=== PATIENT | female | born 1935 | race Hispanic/Latino ===

== ENCOUNTER 2017-04-30 10:56 | Emergency (ER) | payer MEDICARE, MEDICAID ==
[2017-04-30 11:18] VITALS: BP 153/83; RESP 19; TEMP 97.6; O2SAT 97; BMI 25.1
[2017-04-30 11:25] VITALS: PULSE 88
--- NOTE | 2017-04-30 11:31 | ED PDOC ---
Arrival/HPI - General Chief Complaint: Lower Extremity Problem/Injury Time Seen by Provider: 04/30/17 11:06 Historian: Patient - History of Present Illness Narrative History of Present Illness (Text): 04/30/17 11:28 The pt is a 81yo female with a past medical history of trigeminal neuralgia, COPD, chronic bronchitis (per pt's prior records), is sent to the Emergency department for evaluation of left lower extremity. Pt reports she favors her left leg while walking, resulting in the swelling. She additionally reports visiting this facility 2-3 months ago during which she had a US Doppler of her lower extremity with no acute findings. Pt currently denies any shortness of breath or difficulty breathing. Pt offers no additional medical complaints. PCP: Dr. 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) Hx Pacemaker: No - Pulmonary Hx Respiratory Disorders: Yes Hx Asthma: No Hx Bronchitis: Yes (chronic) Hx Chronic Obstructive Pulmonary Disease (COPD): Yes Hx Emphysema: Yes Hx Pneumonia: No Hx Respiratory Aspiration: No Hx Respiratory Tract Infection: No Hx Sleep Apnea: No Hx Tuberculosis: No - Neurological Hx Neurological Disorder: No (TRIGEMINAL NEURALGIA) - HEENT Hx HEENT Disorder: No - Renal Hx Renal Disorder: No - Endocrine/Metabolic Hx Endocrine Disorders: No - Hematological/Oncological Hx Blood Disorders: No - Integumentary Hx Dermatological Disorder: No - Musculoskeletal/Rheumatological Hx Musculoskeletal Disorders: Yes (L2 COMPRESSION FX) Hx Falls: Yes Other/Comment: walks with walker, steady - Gastrointestinal Hx Gastrointestinal Disorders: Yes Hx Gall Bladder Disease: Yes (GALLBLADDER CALCULI) - Genitourinary/Gynecological Hx Genitourinary Disorders: Yes (retention) - Psychiatric Hx Psychophysiologic Disorder: Yes (SMOKED <PK/DAY) Hx Emotional Abuse: No Hx Physical Abuse: No Hx Substance Use: No - Past Surgical History Past Surgical History: No Previous - Anesthesia Hx Anesthesia: Yes Hx Anesthesia Reactions: No Hx Malignant Hyperthermia: No - Suicidal Assessment Feels Threatened In Home Enviroment: No Family/Social History - Physician Review Nursing Documentation Reviewed: Yes Family/Social History: No Known Family HX Smoking Status: Former Smoker Hx Alcohol Use: No Hx Substance Use: No Allergies/Home Meds Allergies/Adverse Reactions: Allergies No Known Allergies Allergy (Verified 04/30/17 11:18) Home Medications: Home Meds Medication Instructions Recorded Confirmed Naproxen Sodium [Aleve] 1 tab PO PRN PRN 04/30/17 04/30/17 Review of Systems - Physician Review All systems were reviewed & negative as marked: Yes - Review of Systems Constitutional: Normal Respiratory: absent: SOB, Other (difficulty breathing) Cardiovascular: absent: Calf Pain Musculoskeletal: Other (swelling of left lower extremity) Physical Exam Vital Signs Temp Pulse Resp BP Pulse Ox 04/30/17 11:18 97.6 F 88 19 153/83 H 97 Temperature: Afebrile Blood Pressure: Normal Pulse: Regular Respiratory Rate: Normal Appearance: Positive for: Well-Appearing, Non-Toxic, Comfortable Pain Distress: None Mental Status: Positive for: Alert and Oriented X 3 - Systems Exam Head: Present: Atraumatic, Normocephalic Neck: Present: Normal Range of Motion Respiratory/Chest: No: Respiratory Distress, Accessory Muscle Use Cardiovascular: Present: Regular Rate and Rhythm, Normal S1, S2. No: Murmurs Lower Extremity: Present: Swelling (swelling noted to left lower extremity), Other (mild tenderness to palpation of left lower extremity) Skin: Present: Warm, Dry. No: Rashes Psychiatric: Present: Alert, Oriented x 3, Normal Insight, Normal Concentration Medical Decision Making ED Course and Treatment: 04/30/17 11:33 Impression: Left lower extremity swelling Differential Diagnosis included but are not limited to: r/o DVT in left lower extremity Plan: -- US Doppler LLE -- Reassess and disposition Prior Visits: Notes and results from previous visits were reviewed. Pt was seen in the facility in January 2017 and had a US Doppler of her lower extremity with no signs of DVT. Progress Notes: 04/30/17 12:00 US Doppler with no acute findings. - RAD Interpretation Radiology Orders: 04/30/17 11:27 DUPLEX LOWER EXTRM VEIN LEFT [US] Stat - Scribe Statement The provider has reviewed the documentation as recorded by the Scribe Melissa Carreno Provider Scribe Attestation: All medical record entries made by the Scribe were at my direction and personally dictated by me. I have reviewed the chart and agree that the record accurately reflects my personal performance of the history, physical exam, medical decision making, and the department course for this patient. I have also personally directed, reviewed, and agree with the discharge instructions and disposition. Disposition/Present on Arrival - Present on Arrival Any Indicators Present on Arrival: No History of DVT/PE: No History of Uncontrolled Diabetes: No Urinary Catheter: No History of Decub. Ulcer: No History Surgical Site Infection Following: None - Disposition Have Diagnosis and Disposition been Completed?: Yes Diagnosis: Leg swelling Disposition: HOME/ ROUTINE Disposition Time: 12:00 Condition: GOOD Discharge Instructions (ExitCare): Leg Pain (ED) Additional Instructions: Thank you for letting us take care of you today. Your provider was Dr. Jesus. You were treated for leg swelling. The emergency medical care you received today was directed at your acute symptoms. If you were prescribed any medication, please fill it and take as directed. It may take several days for your symptoms to resolve. Return to the Emergency Department if your symptoms worsen, do not improve, or if you have any other problems. Please contact your doctor or call one of the physicians/clinics you have been referred to that are listed on the Patient Visit Information form that is included in your discharge packet. Bring any paperwork you were given at discharge with you along with any medications you are taking to your follow up visit. Our treatment cannot replace ongoing medical care by a primary care provider (PCP) outside of the emergency department. Thank you for allowing the [facility] [employer] team to be part of your care today. Follow up with Dr. Sanders for follow up evaluation. Referrals: [facility] Jimbo Reifeoma, [Family Provider] - Follow up with primary
--- NOTE | 2017-04-30 14:13 | US ---
PROCEDURE: Left lower extremity venous US HISTORY: Leg pain and swelling. Evaluate for DVT. PHYSICIAN(S): Chip Santizo MD. TECHNIQUE: Duplex sonography and color-flow Doppler with graded compression were used to evaluate the deep venous system of the left lower extremity. The exam is somewhat limited by edema. FINDINGS: The visualized deep venous system of the left lower extremity is sonographically normal and compressible. Normal wave forms and augmentation are seen. There is no sonographic evidence for deep venous thrombosis in the visualized segments of the left lower extremity. IMPRESSION: 1. No sonographic evidence for deep venous thrombosis in the visualized segments of the left lower extremity.
== END 2017-04-30 12:18 | disposition home or self-care (01) ==
LOC: ED 10:56
DX: M79.89 Other specified soft tissue disorders (principal)